=== PATIENT | female | born 1955 | race Caucasian/White ===

== ENCOUNTER 2017-07-12 12:04 | Day surgery (SDC) | payer OTHER ==
[2017-07-12 12:28] VITALS: RESP 20; TEMP 95.5
[2017-07-12] MEDS ORDERED: ALPRAZolam 0.5 MG TAB PO STA (12:36)
[2017-07-12 13:17] VITALS: BP 150/76; PULSE 61
--- NOTE | 2017-07-12 14:01 | US ---
EXAMINATION TYPE: US FNA thyroid DATE OF EXAM: 07/12/2017 COMPARISON: NONE HISTORY: Thyroid nodule. Maximal barrier technique was utilized. After informed consent, skin overlying the lesion was locali zed with ultrasound and the overlying skin prepped and draped. Ultrasound was utilized using sterile technique. Lidocaine was used for local anesthesia. Five passes with a 25-gauge needle were made int o the rightnodule and aspirated specimen was submitted to cytology. Following the procedure hemostas is achieved. No immediate complication. The patient discharged in stable condition. IMPRESSION: STATUS POST ULTRASOUND GUIDED FINE NEEDLE ASPIRATION OF THYROID NODULE, PATHOLOGY IS PEND ING. THIS PROCEDURE WAS PERFORMED BY THE UNDERSIGNED.
--- NOTE | 2017-07-12 14:03 | US ---
EXAMINATION TYPE: US FNA thyroid DATE OF EXAM: 07/12/2017 COMPARISON: NONE HISTORY: Thyroid nodule.Maximal barrier technique was utilized. After informed consent, skin overlyi ng the lesion was localized with ultrasound and the overlying skin prepped and draped. Ultrasound was utilized using sterile technique. Lidocaine was used for local anesthesia. Single pass with a 25-gau ge needle were made into the nodule, the needle could not be advanced past the calcification, and asp irated specimen was submitted to cytology. Following the procedure hemostasis achieved. No immediat e complication. The patient discharged in stable condition. IMPRESSION: STATUS POST ULTRASOUND GUIDED FINE NEEDLE ASPIRATION OF LEFT THYROID NODULE as described, PATHOLOGY IS PENDING. THIS PROCEDURE WAS PERFORMED BY THE UNDERSIGNED.
== END 2017-07-12 13:50 | disposition home or self-care (01) ==
LOC: RADPROMAIN 12:04
PROVIDERS: ATTEND Family Medicine
DX: E04.2 Nontoxic multinodular goiter (principal); Z79.899 Other long term (current) drug therapy; E78.5 Hyperlipidemia, unspecified; F32.9 Major depressive disorder, single episode, unspecified; M19.90 Unspecified osteoarthritis, unspecified site; Z87.891 Personal history of nicotine dependence
CPT/HCPCS: 10022; 76942; 88173; 88305

== ENCOUNTER → 2017-07-17 | Outpatient (CLI) | payer OTHER ==
--- NOTE | 2017-07-18 09:18 | BD ---
EXAMINATION TYPE: MG DEXA axial skeleton. DATE OF EXAM: 07/17/2017 COMPARISON: NONE CLINICAL HISTORY: Postmenopausal female Height: 61 Weight: 177.5 FRAX RISK QUESTIONS: Alcohol (3 or more units per day): no Family History (Parent hip fracture): no Glucocorticoids (More than 3mos): no (Ex: prednisone, prednisolone, methylprednisolone, dexamethasone, and hydrocortisone). History of Fracture in Adulthood: no Secondary Osteoporosis: 1. Type 1 Diabetes: no 2. Hyperthyroidism: no 3. Menopause before 45: no 4. Malnutrition: no 5. Chronic liver disease: no Rheumatoid Arthritis: no Current Tobacco Use: no RISK FACTORS HISTORY OF: History of Wrist Fracture: rt arm When: as a child Surgery to Spine/Hip(right/left)/Wrist (right/left): no Family History of Osteoporosis: no Active: yes Diet low in dairy products/other sources of calcium: no Postmenopausal woman: sometime after age 43 Lost more than 2 inches in height since high school: no Frequent falls: no Poor Health: no Hyperparathyroidism: no Adrenal Insufficiency: no MEDICATIONS: trazodone, depression meds, sleep aid, claratin, muscle relaxer Additional History: EXAM MEASUREMENTS: Bone mineral densitometry was performed using the [employer] System. Bone mineral density as measured about the Lumbar spine is: ----- L1-L4(G/cm2): 0.834 T Score Values are as follows: ----- L2: -3.6 ----- L3: -2.9 ----- L4: -1.9 ----- L1-L4: -2.9 Bone mineral density baseline Bone mineral density about the R hip (g/cm2): 0.677 Bone mineral density about the L hip (g/cm2): 0.619 T Score values are as follows: -----R Neck: -2.6 -----L Neck: -3.0 -----R Total: -1.9 -----L Total: -2.1 Bone mineral density baseline IMPRESSION: 1. Osteoporosis lumbar spine 2. Osteopenia of the left hip and right hip. NOTE: T-SCORE=SD OF THE YOUNG ADULT MEAN.
== END | disposition home or self-care (01) ==
LOC: RADBDWWP 15:48
PROVIDERS: ATTEND Family Medicine
DX: M81.0 Age-related osteoporosis without current pathological fracture (principal); M85.851 Other specified disorders of bone density and structure, right thigh; M85.852 Other specified disorders of bone density and structure, left thigh; F17.200 Nicotine dependence, unspecified, uncomplicated
CPT/HCPCS: 77080

== ENCOUNTER 2017-08-08 10:57 | Day surgery (SDC) | payer OTHER ==
[~2017-08-08 10:57] MED LIST: LACTATED RINGERS 1,000 ML IV SCH
[2017-08-08] MEDS ORDERED: LIDOCAINE 1% 20 ML VIAL (10MG/ML) FOR IV START INTRADERMA ONE (11:45)
[2017-08-08 12:00] VITALS: TEMP 97.3
[2017-08-08] MEDS ORDERED: PROPOFOL 10 MG/ML 20 ML VIAL IV ONE (12:12)
[2017-08-08] MEDS ORDERED: LIDOCAINE 1% INJ 10MG/ML (20 ML MDV) ONE (12:12)
[2017-08-08 12:40] VITALS: RESP 18
--- NOTE | 2017-08-08 12:42 | P.OP ---
Date of Procedure: 08/08/17 Preoperative Diagnosis: Screening. For colon cancer Postoperative Diagnosis: Descending colon polyp Moderate to extensive diverticulosis. Procedure(s) Performed: Colonoscopy and snare polypectomy Anesthesia: MAC Surgeon: Chato Trinh Estimated Blood Loss (ml): 0 Pathology: other (Descending colon polyp) Condition: stable Indications for Procedure: The patient is a 61-year-old white female comes in for us A slime screening colonoscopy. Asymptomatic. Informed consent was obtained procedure having been explained to her including potential complication particular bleeding and perforation. She understood and agree to proceed. Operative Findings: 1 descending colon polyp at about 55 cm from the anal verge sessile about the 4 mm in diameter. 2 moderately extensive pandiverticulosis. Description of Procedure: With the patient in the left lateral position rectal digital examination was normal there were no palpable masses. The video colonoscope was inserted transanally and advanced all the way to the cecum which was entered and well visualized. The ileocecal valve and the appendiceal orifice were well seen. Prep was good. The mucosa were thoroughly examined. Findings as above. The polyp was removed with the snare cautery with good hemostasis. 2 passes of the snare it being quite the flat. The patient tolerated procedure well without any evident complications. Recommendation. High-fiber diet. Advised to chew food well. Recommend a follow-up colonoscopy in about the 3 years in view of the flat nature of the polyp and increased incidence of recurrence.
[2017-08-08 12:58] VITALS: BP 142/72; PULSE 66
== END 2017-08-08 13:14 | disposition home or self-care (01) ==
LOC: ORWHC2ENDO 10:57
PROVIDERS: ATTEND Surgery
DX: Z12.11 Encounter for screening for malignant neoplasm of colon (principal); D12.4 Benign neoplasm of descending colon; K57.30 Diverticulosis of large intestine without perforation or abscess without bleeding; M19.90 Unspecified osteoarthritis, unspecified site; F32.9 Major depressive disorder, single episode, unspecified; E03.9 Hypothyroidism, unspecified; E04.9 Nontoxic goiter, unspecified; E78.00 Pure hypercholesterolemia, unspecified; Z79.899 Other long term (current) drug therapy; Z87.891 Personal history of nicotine dependence; Z79.1 Long term (current) use of non-steroidal anti-inflammatories (NSAID)
CPT/HCPCS: 88305; 45385; J2001; J2704

== ENCOUNTER → 2018-05-16 | Outpatient (CLI) | payer OTHER ==
--- NOTE | 2018-05-16 14:31 | US ---
EXAMINATION TYPE: US abdomen complete DATE OF EXAM: 05/16/2018 COMPARISON: NONE CLINICAL HISTORY: 52-year-old female R14.0 Abd distension, Abd pain R10.30. Distended abdomen x multi ple years, occasional abdomen pain TECHNIQUE: Multiple sonographic images of the abdomen are obtained. FINDINGS: EXAM MEASUREMENTS: Liver Length: 12.9 cm Gallbladder Wall: 0.2 cm CBD: 0.4 cm Spleen: 8.0 cm Right Kidney: 9.3 x 5.6 x 4.6 cm Left Kidney: 9.4 x 4.7 x 4.4 cm Nutrition Partner notes:Suboptimal visualization of abdominal organs due to midline abdomen mass displaci ng organs superiorly. Pancreas: obscured Liver: wnl Gallbladder: wnl Evidence for sonographic Jarrett's sign: no CBD: wnl Spleen: wnl Right Kidney: wnl Left Kidney: wnl Upper IVC: wnl Abd Aorta: obscured Distended abdomen area: 31.8 x 21.3 x 27.7cm complex septated cystic mass IMPRESSION: 1. Abdominal distention is secondary to a complex cystic mass measuring up to 32 x 28 cm reaching up to the upper abdominal cavity. 2. This may be of ovarian origin representing a very large cystic epithelial neoplasm. Other etiology not excluded at this time. Contrast enhanced CT recommended to further evaluate.
== END | disposition home or self-care (01) ==
LOC: RADUSWWP 08:47
PROVIDERS: ATTEND Family Medicine
DX: R14.0 Abdominal distension (gaseous) (principal)
CPT/HCPCS: 76700

== ENCOUNTER → 2018-05-31 | Outpatient (CLI) | payer OTHER ==
--- NOTE | 2018-05-31 14:56 | CT ---
EXAMINATION TYPE: CT abdomen pelvis w con DATE OF EXAM: 05/31/2018 HISTORY: Abdominal bloating. CT DLP: 1146.1mGycm Automated Exposure Control for Dose Reduction was Utilized. CONTRAST: CT scan of the abdomen and pelvis is performed with IV Contrast, patient injected with 100 mL of Isov ue M300. COMPARISON: Abdominal ultrasound dated 05/16/2018 FINDINGS: LUNG BASES: No significant abnormality is appreciated. LIVER/GB: There is a punctate to small to accurately characterize 4 mm hepatic lesion in segment 8 on series 3 image 7. Additional 3 mm too small to accurately characterize hepatic lesion is seen on ser ies 3 image 21lastly there is a 4 mm hypoattenuated lesion on image 6. The remainder of the hepatic p arenchyma enhances homogeneously. No cholelithiasis. PANCREAS: No significant abnormality is seen. SPLEEN: No significant abnormality is seen. ADRENALS: No significant abnormality is seen. KIDNEYS: Kidneys enhance and excrete symmetrically. Mild fullness of the bilateral renal systems may be on the basis of mild hydronephrosis due to compression of the ureters by the large intra-abdominal mass. BOWEL: There is a small hiatal hernia. Bowel is compressed by the large intra-abdominal mass causing significant mass effect. No dilated bowel to suggest obstruction. UTERUS/ADNEXA: There is a large multicystic lobulated pelvic mass extending into the upper abdomen wi th mass effect upon the surrounding intra-abdominal hollow and solid viscera crossing midline and salvatore suring 32.8 x 16.4 x 25.0 cm containing numerous internal septa. LYMPH NODES: No gross evidence of greater than 1cm abdominal or pelvic lymph nodes are appreciated. H owever mesentery is extremely limited given mass effect from the large mass. OSSEOUS STRUCTURES: Levoscoliosis of the lumbar spine is noted. IMPRESSION: 1. Large complex 32.8 cm pelvic mass extending into the upper abdomen with mass effect upon the intra -abdominal and pelvic hollow and solid viscera accounting for the patient's symptoms. Considerations are for benign and malignant ovarian neoplasms such as mucinous and serous cystoadenoma and cystadeno carcinoma. Surgical OB/gynecologic consultation is recommended. Surgical excision is also recommended . 2. Fullness of the bilateral collecting systems suggests mild hydronephrosis due to mass effect on th e distal ureters from the large intra-abdominal mass. 3. Indeterminate hepatic lesions that are all subcentimeter and too small to accurately characterize. MRI could be considered or short-term surveillance.
== END ==
LOC: RADCTMAIN 12:34
PROVIDERS: ATTEND Family Medicine
DX: R19.00 Intra-abdominal and pelvic swelling, mass and lump, unspecified site (principal)
CPT/HCPCS: 74177; Q9967

== ENCOUNTER → 2018-06-28 | Outpatient (CLI) | payer OTHER ==
--- NOTE | 2018-06-29 10:28 | EST ---
EXERCISE STRESS AGE: 62 SEX: F HT: 61" WT: 180 PROTOCOL: William Stress Test STAGE: 2 DURATION OF EXERCISE: 3:36 HEART RATE REST: 80 BLOOD PRESSURE REST: 144/96 MAXIMUM HEART RATE ACHIEVED: 139 MAXIMUM BLOOD PRESSURE: 211/85 85% MPHR: 133 100% MPHR: 156 METS: 5.2 INDICATIONS: Murmur/preoperative. CLINICAL INFORMATION: Patient was exercised for a total period of 3 minutes and 30 seconds. A peak heart rate of 139 was achieved. Maximum blood pressure of 211/85 mmHg was noted. Patient did not complain of any chest pain during the test. The resting EKG shows normal sinus rhythm with normal AL interval and QRS duration and normal ST-T waves. No ST-segment depression suggestive of ischemia is noted. Patient did not complain of any chest pain during the test. FINAL IMPRESSION: 1. This exercise test is not suggestive of ischemia. Patient's exercise tolerance is normal. 2. EKG portion of the stress test is not suggestive of ischemia. MMODL / IJN: [id number] /
== END | disposition home or self-care (01) ==
LOC: RADNMMAIN 10:40
PROVIDERS: ATTEND Family Medicine
DX: Z01.810 Encounter for preprocedural cardiovascular examination (principal)
CPT/HCPCS: 93017; 93351

== ENCOUNTER 2018-11-29 13:31 | Observation (INO) | payer OTHER ==
[2018-11-29] MEDS ORDERED: ASPIRIN 81 MG PO STA (14:17)
--- NOTE | 2018-11-29 14:18 | ED ---
General Adult HPI - General Chief complaint: Anxiety Stated complaint: Anxiety, Chest pain Time Seen by Provider: 11/29/18 13:37 Source: patient, EMS Mode of arrival: EMS Limitations: no limitations - History of Present Illness Initial comments: Dictation was produced using [employer] dictation software. please excuse any grammatical, word or spelling errors. Chief Complaint: 62-year-old female past medical history of heart murmur, dyslipidemia and undefined abdominal cancer presents with chest pain. History of Present Illness: Patient is 62-year-old female she states that she was having chest pain while arguing with her fianc. Patient states that the pain is between sharp and dull and radiates down her left upper extremity. Patient states that she called ambulance and was brought to the emergency department. Patient reports that she does not feel safe at home however arrange safe living situation. Patient reports that there are arguing about a myriad of things. States that her symptoms lasted for several minutes however since coming to the emergency department her symptoms are improved. Patient reports history of cardiac disease she states that her cardiac diseases heart murmur. Chart review shows patient had a EKG stress tests with no ischemic findings. No diaphoresis, no nausea. The ROS documented in this emergency department record has been reviewed and confirmed by me. Those systems with pertinent positive or negative responses have been documented in the HPI. All other systems are other negative and/or noncontributory. PHYSICAL EXAM: General Impression: Alert and oriented x3, not in acute distress HEENT: Normocephalic atraumatic, extra-ocular movements intact, pupils equal and reactive to light bilaterally, mucous membranes moist. Cardiovascular: Heart regular rate and rhythm, S1&S2 audible, no murmurs, rubs or gallops Chest: Lungs clear to auscultation bilaterally, no rhonchi, no wheeze, no rales Abdomen: Bowel sounds present, abdomen soft, non-tender, non-distended, no o rganomegaly Musculoskeletal: Pulses present and equal in all extremities, no peripheral edema Motor: no focal deficits noted Neurological: CN II-XII grossly intact, no focal motor or sensory deficits noted Skin: Intact with no visualized rashes Psych: Normal affect and mood ED course: 62-year-old female presents with atypical chest pain with typical features. Vital signs upon arrival are within acceptable limits.Laboratory evaluation obtained. CBC, coag panel and metabolic panel is unremarkable. Troponin is negative. Chest x-ray shows superior mediastinal mass. Radiology recommended obtaining CT of the chest. 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 Patient has history of thyroid disease. She has a surgeon in [place] who is monitoring her goiter. Chart review shows that patient had findings of aspiration here showing benign multinodular goiter. Given patient's symptoms of atypical chest pain with typical features we will plan outpatient admitted for surgery troponins. Patient had stress EKG in June that was unremarkable. Patient given aspirin. She is understandable and agreeable to disposition. EKG interpretation: Ventricular rate 66, normal sinus rhythm, IN interval 170, QRS 80, QTc 42. No IN prolongation, no QTC prolongation, no ST or T-wave changes noted. Overall, this EKG is unremarkable - Related Data Home Medications Medication Instructions Recorded Confirmed Atorvastatin [Lipitor] 10 mg PO HS 06/29/17 11/29/18 Citalopram Hydrobromide [CeleXA] 10 mg PO QAM 06/29/17 11/29/18 Cyclobenzaprine [Flexeril] 10 mg PO BID 06/29/17 11/29/18 Loratadine [Claritin] 10 mg PO HS 06/29/17 11/29/18 traZODone HCL 50 mg PO HS 06/29/17 11/29/18 Naproxen Sodium [Aleve] 220 - 440 mg PO Q6HR PRN 08/04/17 11/29/18 Ergocalciferol (Vitamin D2) 50,000 unit PO Q7D 11/29/18 11/29/18 [Drisdol] Allergies Allergy/AdvReac Type Severity Reaction Status Date / Time venom-wasp AdvReac Rash/Hives Verified 11/29/18 13:55 Review of Systems ROS Statement: Those systems with pertinent positive or pertinent negative responses have been documented in the HPI. ROS Other: All systems not noted in ROS Statement are negative. Past Medical History Past Medical History: Hyperlipidemia, Osteoarthritis (OA), Thyroid Disorder Additional Past Medical History / Comment(s): vitamin D deficiency, goiter, knee arthritis, ovarian cyst History of Any Multi-Drug Resistant Organisms: None Reported Past Surgical History: Hysterectomy Additional Past Surgical History / Comment(s): oopherectomy - right Past Anesthesia/Blood Transfusion Reactions: No Reported Reaction Past Psychological History: Depression Smoking Status: Former smoker Past Alcohol Use History: None Reported Past Drug Use History: None Reported - Past Family History Father Family Medical History: Cancer Additional Family Medical History / Comment(s): cancer of the larynx Mother Family Medical History: Dementia General Exam Limitations: no limitations Course Vital Signs 11/29/18 11/29/18 11/29/18 13:41 15:00 15:30 Temperature 97.5 F L Pulse Rate 75 Respiratory 18 Rate Blood Pressure 151/75 159/70 148/72 O2 Sat by Pulse 98 97 100 Oximetry 11/29/18 16:00 Temperature Pulse Rate Respiratory Rate Blood Pressure 143/69 O2 Sat by Pulse 95 Oximetry Medical Decision Making - Lab Data Result diagrams: 11/29/18 14:31 11/29/18 14:31 Lab Results 11/29/18 11/29/18 11/29/18 Range/Units 14:31 14:31 14:31 WBC 8.1 (3.8-10.6) k/uL RBC 4.91 (3.80-5.40) m/uL Hgb 13.0 (11.4-16.0) gm/dL Hct 41.0 (34.0-46.0) % MCV 83.6 (80.0-100.0) fL MCH 26.5 (25.0-35.0) pg MCHC 31.8 (31.0-37.0) g/dL RDW 13.4 (11.5-15.5) % Plt Count 225 (150-450) k/uL Neutrophils % 74 % Lymphocytes % 19 % Monocytes % 6 % Eosinophils % 1 % Basophils % 0 % Neutrophils # 5.9 (1.3-7.7) k/uL Lymphocytes # 1.5 (1.0-4.8) k/uL Monocytes # 0.5 (0-1.0) k/uL Eosinophils # 0.1 (0-0.7) k/uL Basophils # 0.0 (0-0.2) k/uL PT 10.1 (9.0-12.0) sec INR 0.9 (<1.2) APTT 25.3 (22.0-30.0) sec Sodium 140 (137-145) mmol/L Potassium 4.2 (3.5-5.1) mmol/L Chloride 108 H (98-107) mmol/L Carbon Dioxide 26 (22-30) mmol/L Anion Gap 6 mmol/L BUN 15 (7-17) mg/dL Creatinine 0.53 (0.52-1.04) mg/dL Est GFR (CKD-EPI)AfAm >90 (>60 ml/min/1.73 sqM) Est GFR (CKD-EPI)NonAf >90 (>60 ml/min/1.73 sqM) Glucose 99 (74-99) mg/dL Calcium 9.7 (8.4-10.2) mg/dL Magnesium 2.0 (1.6-2.3) mg/dL Total Bilirubin 0.4 (0.2-1.3) mg/dL AST 23 (14-36) U/L ALT 25 (9-52) U/L Alkaline Phosphatase 98 (38-126) U/L Troponin I (0.000-0.034) ng/mL Total Protein 6.9 (6.3-8.2) g/dL Albumin 4.2 (3.5-5.0) g/dL /12/12 Range/Units 14:31 WBC (3.8-10.6) k/uL RBC (3.80-5.40) m/uL Hgb (11.4-16.0) gm/dL Hct (34.0-46.0) % MCV (80.0-100.0) fL MCH (25.0-35.0) pg MCHC (31.0-37.0) g/dL RDW (11.5-15.5) % Plt Count (150-450) k/uL Neutrophils % % Lymphocytes % % Monocytes % % Eosinophils % % Basophils % % Neutrophils # (1.3-7.7) k/uL Lymphocytes # (1.0-4.8) k/uL Monocytes # (0-1.0) k/uL Eosinophils # (0-0.7) k/uL Basophils # (0-0.2) k/uL PT (9.0-12.0) sec INR (<1.2) APTT (22.0-30.0) sec Sodium (137-145) mmol/L Potassium (3.5-5.1) mmol/L Chloride (98-107) mmol/L Carbon Dioxide (22-30) mmol/L Anion Gap mmol/L BUN (7-17) mg/dL Creatinine (0.52-1.04) mg/dL Est GFR (CKD-EPI)AfAm (>60 ml/min/1.73 sqM) Est GFR (CKD-EPI)NonAf (>60 ml/min/1.73 sqM) Glucose (74-99) mg/dL Calcium (8.4-10.2) mg/dL Magnesium (1.6-2.3) mg/dL Total Bilirubin (0.2-1.3) mg/dL AST (14-36) U/L ALT (9-52) U/L Alkaline Phosphatase (38-126) U/L Troponin I <0.012 (0.000-0.034) ng/mL Total Protein (6.3-8.2) g/dL Albumin (3.5-5.0) g/dL Disposition Clinical Impression: Chest pain Disposition: ADMITTED IP TO THIS HOSP Condition: Fair Referrals: Kg Peterson DO [Primary Care Provider] - 1-2 days Decision Time: 17:06
[2018-11-29 14:44] LABS: Basophils % (A) 0 %; Eosinophils # (A) 0.1 k/uL (0-0.7); Eosinophils % (A) 1 %; Lymphocytes # (A) 1.5 k/uL (1.0-4.8); Lymphocytes % (A) 19 %; MCH 26.5 pg (25.0-35.0); MCHC 31.8 g/dL (31.0-37.0); MCV 83.6 fL (80.0-100.0); Mean Platelet Volume 6.4; Monocytes # (A) 0.5 k/uL (0-1.0); Monocytes % (A) 6 %; Neutrophils # (A) 5.9 k/uL (1.3-7.7); Neutrophils % (A) 74 %; Platelet Count 225 k/uL (150-450); RBC 4.91 m/uL (3.80-5.40); RDW 13.4 % (11.5-15.5); WBC 8.1 k/uL (3.8-10.6)
--- NOTE | 2018-11-29 14:57 | XR ---
EXAMINATION TYPE: XR chest 2V DATE OF EXAM: 11/29/2018 COMPARISON: NONE HISTORY: Chest pain and tachycardia TECHNIQUE: Frontal and lateral views of the chest are obtained. FINDINGS: Superior mediastinal mass is seen measuring 9.7 cm. There is no focal air space opacity, p leural effusion, or pneumothorax seen. The cardiac silhouette size is within normal limits. The os seous structures are intact. IMPRESSION: 1. Superior mediastinal mass. CT chest could be performed for further evaluation. If this mass is thy roid in origin in combination with the the tachycardia thyroiditis and/or thyroid storm could be cons idered. 2. No acute pulmonary pathology.
[2018-11-29 15:00] LABS: ALT 25 U/L (9-52); AST 23 U/L (14-36); African American GFR (CKD) >90 (>60 ml/min/1.73 sqM); Albumin 4.2 g/dL (3.5-5.0); Alkaline Phosphatase 98 U/L (38-126); Anion Gap 6 mmol/L; Blood Urea Nitrogen 15 mg/dL (7-17); Calcium 9.7 mg/dL (8.4-10.2); Carbon Dioxide 26 mmol/L (22-30); Chloride 108 mmol/L (98-107); Glucose 99 mg/dL (74-99); Potassium 4.2 mmol/L (3.5-5.1); Sodium 140 mmol/L (137-145); Total Bilirubin 0.4 mg/dL (0.2-1.3); Total Protein 6.9 g/dL (6.3-8.2)
[2018-11-29 15:01] LABS: INR 0.9 (<1.2); Partial Thromboplastin Time 25.3 sec (22.0-30.0); Prothrombin Time 10.1 sec (9.0-12.0)
[2018-11-29] MEDS ORDERED: RX INFO: IV CONTRAST WAS GIVEN 1 EACH MISC MISCELLANE PRN (15:39)
--- NOTE | 2018-11-29 16:56 | CT ---
EXAMINATION TYPE: CT chest w con DATE OF EXAM: 11/29/2018 COMPARISON: None HISTORY: History of heart murmur. Anxiety attack today, left sided chest pain. CT DLP: 229.3 mGycm Automated exposure control for dose reduction was used. CONTRAST: CT scan of the chest is performed with IV Contrast, patient injected with 100 mL of Isovue 300. FINDINGS: The lungs are clear of infiltrate. There is no pleural effusion. There is markedly enlarged thyroid g land with nodularity consistent with multinodular retrosternal goiter. There is no mediastinal adenop athy. There are no hilar masses. Heart size is normal. There is no pericardial effusion. There is no pleural effusion. There is some spurring in the thoracic spine. I see no bony destructive process. There is small hiata l hernia. The ribs appear intact. IMPRESSION: Large multinodular retrosternal goiter. Otherwise negative CT scan of the chest.
[2018-11-29] MEDS ORDERED: NITROGLYCERIN SL TABS 0.4 MG TAB SUBLINGUAL PRN (17:06)
[2018-11-29 18:06] LABS: T4, Free (Free Thyroxine) 1.25 ng/dL (0.78-2.19)
[2018-11-29 22:10] VITALS: BMI 31.0
[2018-11-29] MEDS: ATORVASTATIN 10 MG TAB PO SCH ×2 (22:36→23:18)
[2018-11-29] MEDS ORDERED: traZODone HCL 50 MG TAB PO SCH (23:15)
[2018-11-29] MEDS ORDERED: LORATADINE 10 MG TAB PO SCH (23:15)
[2018-11-29] MEDS: CYCLOBENZAPRINE 10 MG TAB PO SCH (23:18)
[2018-11-30] MEDS ORDERED: NAPROXEN 250 MG TAB PO PRN (01:53)
[2018-11-30 03:24] LABS: Cholesterol 145 mg/dL (<200); HDL Cholesterol 67 mg/dL (40-60); LDL Cholesterol,Calculated 67 mg/dL (0-99); Triglycerides 56 mg/dL (<150)
--- NOTE | 2018-11-30 07:44 | P.CRDCN ---
History of Present Illness Consult date: 11/30/18 Chief complaint: Chest pain History of present illness: This is a pleasant 62-year-old female patient with no significant past medical history presented to the emergency room complaining of chest discomfort. The patient was in her usual state of health yesterday when she had a fight with her boyfriend at home and after that she started experiencing chest discomfort, in the mid of the chest, as a sharp kind of discomfort, without any radiation to the arm or neck or shoulders and without any associated symptoms of shortness of breath, dizziness, sweating, or loss of consciousness. The EKG showed sinus rhythm without any significant ST or T-wave abnormalities. The cardiac enzymes were checked and came in to be unremarkable. The patient just was discharged from the hospital a few weeks ago after she came in was chest discomfort and at that point she underwent a stress test and that came in to be unremarkable. She continues to be chest pain-free during her hospitalization this time. Past Medical History Past Medical History: Hyperlipidemia, Osteoarthritis (OA), Thyroid Disorder Additional Past Medical History / Comment(s): vitamin D deficiency, goiter, knee arthritis, ovarian cyst History of Any Multi-Drug Resistant Organisms: None Reported Past Surgical History: Hysterectomy Additional Past Surgical History / Comment(s): oopherectomy - right Past Anesthesia/Blood Transfusion Reactions: No Reported Reaction Past Psychological History: Depression Smoking Status: Former smoker Past Alcohol Use History: None Reported Additional Past Alcohol Use History / Comment(s): Quit 2010 Past Drug Use History: None Reported - Past Family History Father Family Medical History: Cancer Additional Family Medical History / Comment(s): cancer of the larynx Mother Family Medical History: Dementia Medications and Allergies Home Medications Medication Instructions Recorded Confirmed Type Atorvastatin [Lipitor] 10 mg PO HS 06/29/17 11/29/18 History Citalopram Hydrobromide [CeleXA] 10 mg PO QAM 06/29/17 11/29/18 History Cyclobenzaprine [Flexeril] 10 mg PO BID 06/29/17 11/29/18 History Loratadine [Claritin] 10 mg PO HS 06/29/17 11/29/18 History traZODone HCL 50 mg PO HS 06/29/17 11/29/18 History Naproxen Sodium [Aleve] 220 - 440 mg PO Q6HR PRN 08/04/17 11/29/18 History Ergocalciferol (Vitamin D2) 50,000 unit PO Q7D 11/29/18 11/29/18 History [Drisdol] Allergies Allergy/AdvReac Type Severity Reaction Status Date / Time venom-wasp AdvReac Rash/Hives Verified 11/29/18 13:55 Physical Exam Vitals: Vital Signs Temp Pulse Pulse Resp BP BP Pulse Ox 11/30/18 07:08 97.8 F 76 17 134/80 98 11/30/18 04:00 76 20 11/30/18 03:56 98.2 F 71 20 121/65 100 11/30/18 00:00 79 16 11/29/18 23:37 97.8 F 77 16 152/71 96 11/29/18 20:00 69 18 11/29/18 19:54 98.0 F 73 18 149/70 100 11/29/18 19:34 98.4 F 75 19 147/62 100 11/29/18 19:00 80 18 140/81 99 11/29/18 18:30 80 24 140/81 97 11/29/18 18:00 84 31 H 140/81 98 11/29/18 17:30 80 17 152/75 100 11/29/18 17:00 80 21 156/68 99 11/29/18 16:30 156/68 11/29/18 16:00 143/69 95 11/29/18 15:30 148/72 100 11/29/18 15:00 159/70 97 11/29/18 13:41 97.5 F L 75 18 151/75 98 Intake and Output 11/29/18 11/30/18 11/30/18 22:59 06:59 14:59 Other: Voiding Method Toilet Toilet # Voids 1 1 - Constitutional General appearance: no acute distress - Respiratory Respiratory: bilateral: CTA - Cardiovascular Rhythm: regular Heart sounds: normal: S1, S2 Results 11/29/18 14:31 11/29/18 14:31 Cardiac Enzymes 11/29/18 11/29/18 11/29/18 Range/Units 14:31 14:31 20:05 AST 23 (14-36) U/L Troponin I <0.012 <0.012 (0.000-0.034) ng/mL 11/30/18 Range/Units 02:40 AST (14-36) U/L Troponin I <0.012 (0.000-0.034) ng/mL Coagulation 11/29/18 Range/Units 14:31 PT 10.1 (9.0-12.0) sec APTT 25.3 (22.0-30.0) sec Lipids 11/30/18 Range/Units 02:40 Triglycerides 56 (<150) mg/dL Cholesterol 145 (<200) mg/dL HDL Cholesterol 67 H (40-60) mg/dL CBC 11/29/18 Range/Units 14:31 WBC 8.1 (3.8-10.6) k/uL RBC 4.91 (3.80-5.40) m/uL Hgb 13.0 (11.4-16.0) gm/dL Hct 41.0 (34.0-46.0) % Plt Count 225 (150-450) k/uL Comprehensive Metabolic Panel 11/29/18 Range/Units 14:31 Sodium 140 (137-145) mmol/L Potassium 4.2 (3.5-5.1) mmol/L Chloride 108 H (98-107) mmol/L Carbon Dioxide 26 (22-30) mmol/L BUN 15 (7-17) mg/dL Creatinine 0.53 (0.52-1.04) mg/dL Glucose 99 (74-99) mg/dL Calcium 9.7 (8.4-10.2) mg/dL AST 23 (14-36) U/L ALT 25 (9-52) U/L Alkaline Phosphatase 98 (38-126) U/L Total Protein 6.9 (6.3-8.2) g/dL Albumin 4.2 (3.5-5.0) g/dL Current Medications Generic Name Dose Route Start Last Admin Trade Name Freq PRN Reason Stop Dose Admin Aspirin 325 mg 11/30/18 09:00 Aspirin PO DAILY [facility] Atorvastatin Calcium 10 mg 11/29/18 21:00 11/29/18 23:18 Lipitor PO 10 mg HS MADELEINE Administration Citalopram Hydrobromide 10 mg 11/30/18 09:00 Celexa PO QAM MADELEINE Cyclobenzaprine HCl 10 mg 11/29/18 23:15 11/29/18 23:18 Flexeril PO 10 mg BID MADELEINE Administration Ergocalciferol 50,000 unit 12/05/18 09:00 Vitamin D2 PO Q7D MADELEINE Loratadine 10 mg 11/29/18 23:15 11/29/18 23:18 Claritin PO 10 mg HS MADELEINE Administration Miscellaneous Information 1 each 11/29/18 15:39 11/29/18 16:04 Rx Info: Iv Contrast Was Given MISCELLANE 12/01/18 15:39 1 each DAILY PRN Administration Per Protocol Naproxen 250 mg 11/30/18 01:53 Naprosyn PO Q6HR PRN Pain Nitroglycerin 0.4 mg 11/29/18 17:06 Nitrostat SUBLINGUAL Q5M PRN Chest Pain Trazodone HCl 50 mg 11/29/18 23:15 11/29/18 23:19 Desyrel PO 50 mg HS MADELEINE Administration Intake and Output 11/29/18 11/30/18 11/30/18 22:59 06:59 14:59 Other: Voiding Method Toilet Toilet # Voids 1 1 11/29/18 14:31 11/29/18 14:31 Assessment and Plan Assessment: Assessment #1 atypical chest discomfort Plan #1 acute coronary event was ruled out #2 the patient just underwent a stress test recently and that came in to be unremarkable #3 from the cardiac standpoint, the patient can be discharged home. Thank you for allowing us participate in her care.
--- NOTE | 2018-11-30 08:05 | HP ---
HISTORY AND PHYSICAL DATE OF SERVICE: 11/29/2018 CHIEF COMPLAINT: Chest pain. HISTORY OF PRESENT ILLNESS: This 62-year-old woman with a past medical history of multiple medical problems including history of hyperlipidemia, history of DJD, history of hypothyroidism, vitamin D deficiency, depression, being followed by Dr. Coleen Lopez in the outpatient setting was complaining of chest pain. The patient apparently was arguing with her significant other and the patient developed chest pain. Patient came to [facility] and admitted for further evaluation and treatment. Patient apparently had a stress test in June of this year in [facility] which was reported as showing no evidence of ischemia. There is no history of any fever, rigors. No history of headache, loss of consciousness or seizures. No history of radiation of pain or any associated symptoms. The pain is rather sharp in character, mild to moderate intensity according to her. The basic labs are normal. EKG is also normal and as well as troponins. PAST MEDICAL HISTORY: History of hyperlipidemia, history of DJD, history of hypothyroidism, vitamin D deficiency, hysterectomy, oophorectomy right. MEDICATIONS: Home medications are: 1. Trazodone 50 mg q.h.s. 2. Naprosyn 220 to 440 mg p.o. q.6 p.r.n. 3. Claritin 10 mg q.h.s. 4. Drisdol 50,000 p.o. q.7 days. 5. Flexeril 10 mg p.o. b.i.d. 6. Celexa 10 mg q.a.m. 7. Lipitor 10 mg q.h.s. ALLERGIES: Allergies are WASP VENOM. FAMILY HISTORY: History of laryngeal cancer. SOCIAL HISTORY: Previous history of smoking. No history of alcohol intake. REVIEW OF SYSTEMS: ENT: No diminished hearing or diminished vision. CARDIOVASCULAR SYSTEM: As mentioned earlier. RESPIRATORY SYSTEM: As mentioned earlier. GI: No nausea. : No dysuria. NERVOUS SYSTEM: No numbness or weakness. ALLERGY/IMMUNOLOGY: No asthma or hay fever. MUSCULOSKELETAL: As mentioned earlier. HEMATOLOGY/ONCOLOGY: No history of anemia. ENDOCRINE: No history of diabetes, hypothyroidism. CONSTITUTIONAL: As mentioned earlier. DERMATOLOGY: Negative. RHEUMATOLOGY: Negative. PSYCHIATRY: As mentioned earlier. PHYSICAL EXAMINATION: The patient is alert and oriented x3. Pulse is 77, blood pressure 152/71, respirations 16, temperature 97.8, pulse ox 96% on room air. HEENT: Conjunctivae normal. Oral mucosa moist. NECK: Is no jugular venous distention, no carotid bruit. No lymph node enlargement. CARDIOVASCULAR: S1, S2 muffled. No S3, no S4. RESPIRATORY: Breath sounds diminished in the bases. A few scattered rhonchi. No crackles. ABDOMEN: Soft, nontender. No mass palpable. LEGS: No edema, no swelling. NERVOUS SYSTEM: Higher functions as mentioned. Moves all 4 limbs. No focal motor or sensory deficit. LYMPHATICS: No lymphadenopathy of the neck, axillae or groin. SKIN: No ulcer, rash or bleeding. JOINTS: No active deforming arthropathy. LABS: WBC 8.1, hemoglobin 13, platelets are 225. Sodium 140, potassium 4.2. TSH less than 0.015. ASSESSMENT: 1. Chest pain possible unstable angina. 2. Anxiety state. 3. Hyperlipidemia. 4. Degenerative joint disease. 5. Hypothyroidism. 6. History of vitamin D deficiency. 7. Goiter. 8. Knee joint arthritis. 9. History of depression. 10.Remote history of nicotine dependence. RECOMMENDATION AND DISCUSSION: In this 62-year-old woman who presented with multiple complex medical issues, will monitor the patient closely. Continue the current medications. Continue symptomatic treatment. Unstable angina protocol. Rule out myocardial infarction. Cardiology consultation. Resume the home medications. We will obtain the previous stress test also, report also. Further recommendations to follow. MMODL / IJN: [id number] /
[2018-11-30] MEDS: CYCLOBENZAPRINE 10 MG TAB PO SCH (08:38)
[2018-11-30] MEDS ORDERED: CITALOPRAM HYDROBROMIDE 10 MG TAB PO SCH (09:00)
[2018-11-30] MEDS ORDERED: ASPIRIN 325 MG TAB PO SCH (09:00)
[2018-11-30 12:17] VITALS: BP 159/81; PULSE 65; RESP 16; TEMP 97.5
--- NOTE | 2018-11-30 21:56 | DS ---
DISCHARGE SUMMARY FINAL DIAGNOSES: 1. Chest pain possibly musculoskeletal, myocardial infarction ruled out. 2. Anxiety state. 3. Hyperlipidemia. 4. Degenerative joint disease. 5. Hypothyroidism. 6. History of vitamin D deficiency. 7. History of goiter. 8. History degenerative joint disease. 9. History of depression. 10.Remote history of nicotine dependence. DISCHARGE DISPOSITION: The patient is being discharged in stable condition with guarded prognosis. HISTORY OF PRESENT ILLNESS: This 62-year-old woman with a past medical history of multiple medical problems was admitted with chest pain, myocardial infarction ruled out. Patient recently had a stress test. Cardiology saw the patient. Cleared the patient for discharge. On exam, vitals are stable. Cardiovascular: S1, S2. Abdomen soft. Nervous system: No focal deficit. Basic labs are also negative. Troponins are negative. TSH was less than 0.015, but free T4 is normal. DISCHARGE ADVICE AND MEDICATIONS: 1. Diet is cardiac diet. 2. Followup with Dr. Peterson in 1-2 days. MEDICATIONS ARE: 1. Naprosyn 220 q.4h p.r.n. 2. Celexa 10 mg q.a.m. 3. Claritin 10 mg q.h.s. 4. Drisdol 50,000 every 7 days. 5. Flexeril 10 mg p.o. b.i.d. 6. Lipitor 10 mg q.h.s. 7. Trazodone 50 mg q.h.s.. FOLLOWUP: Follow up labs free T4 and TSH and Dr. Peterson in 1-2 months. Follow up with Cardiology as recommended. MMODL / IJN: [id number] / ADEEL
[2018-12-05] MEDS ORDERED: ERGOCALCIFEROL 50,000 UNIT CAP PO SCH (09:00)
== END 2018-11-30 14:16 | disposition home or self-care (01) ==
LOC: SUPCPDRO 13:31 → EC 13:31 → 1SOBS 17:06
PROVIDERS: ADMIT Hospitalist; ATTEND Hospitalist
DX: R07.89 Other chest pain (principal); F41.1 Generalized anxiety disorder; E04.2 Nontoxic multinodular goiter; F32.9 Major depressive disorder, single episode, unspecified; E03.9 Hypothyroidism, unspecified; E78.5 Hyperlipidemia, unspecified; E55.9 Vitamin D deficiency, unspecified; M17.10 Unilateral primary osteoarthritis, unspecified knee; R01.1 Cardiac murmur, unspecified; Z79.82 Long term (current) use of aspirin; Z79.1 Long term (current) use of non-steroidal anti-inflammatories (NSAID); Z79.899 Other long term (current) drug therapy; Z91.038 Other insect allergy status; Z87.42 Personal history of other diseases of the female genital tract; Z87.891 Personal history of nicotine dependence; Z90.721 Acquired absence of ovaries, unilateral; Z90.710 Acquired absence of both cervix and uterus; Z81.8 Family history of other mental and behavioral disorders; Z80.2 Family history of malignant neoplasm of other respiratory and intrathoracic organs
CPT/HCPCS: 99285; 36415; 93005; 84439; 80061; 80053; 84443; 83735; 84484 ×2; 85025; 85610; 85730; 71046; 71260; G0378 ×2; Q9967

== ENCOUNTER → 2023-06-27 | Outpatient (CLI) | payer MEDICARE ==
--- NOTE | 2023-06-27 12:50 | US ---
EXAMINATION TYPE: US thyroid st tissue head/neck DATE OF EXAM: 06/27/2023 COMPARISON: 06/05/2017 CLINICAL INDICATION: Female, 67 years old with history of E04.9 NONTOXIC GOITER, UNSPECIFIED; GLAND SIZE: Right Lobe: 10.6 x 4.5 x 5.3 cm Overall Parenchyma: heterogenous Left Lobe: 10.1 x 5.1 x 5.7 cm Overall Parenchyma: heterogenous Isthmus Thickness: 3.1 cm NODULES RIGHT: # of nodules measured on right: 1 1. 3.4 X 1.5 x 3.1 cm, lower medial, spongiform, isoechoic nodule, which is wider than tall, with s mooth margins, with echogenic foci. TR 4 Prior size: 3.2 x 1.6 x 2.5 cm LEFT: # of nodules measured on left: 1 1. 1.7 X 1.6 x 1.0 cm, lower medial, solid or almost completely solid, hyperechoic nodule, which is wider than tall, with ill-defined margins, with echogenic foci. TR 4 Prior size: 1.1 x 0.8 x 1.0 cm ISTHMUS: # of nodules measured in the isthmus: 0 Lymph nodes noted bilaterally. Difficult exam due to pathology/gland size. IMPRESSION: Moderately suspicious nodules both left and right lobe thyroid. On the left this is enlarging. If the se have not been biopsied, biopsy would be recommended. 2017 ACR TI-RADS LEVEL: TR-RADS 4 - Moderately Suspicious: Follow if > 1 cm, FNA if > 1.5 cm *Highest TI-RADS level nodule reported
== END | disposition home or self-care (01) ==
LOC: RADUSWWP 12:10
PROVIDERS: ATTEND Family Medicine
DX: E04.9 Nontoxic goiter, unspecified (principal)
CPT/HCPCS: 76536

== ENCOUNTER 2023-08-01 12:38 | Day surgery (SDC) | payer MEDICARE ==
[2023-08-01] MEDS: ALPRAZolam 0.25 MG TAB PO STA (12:55)
[2023-08-01 13:34] VITALS: PULSE 59; RESP 18; TEMP 97.6
--- NOTE | 2023-08-01 14:43 | US ---
ULTRASOUND GUIDED FNA THYROID BIOPSY: CLINICAL HISTORY: Right thyroid nodule FINDINGS: The procedure was explained to the patient. The risks, complications, benefits and alternatives were discussed and any questions were answered. Informed consent was obtained. Patient was placed supin e on the ultrasound table and prepped and draped in the usual sterile fashion. Utilizing a 25 gauge needle, five passes were made into the requested right thyroid nodule. The left thyroid nodule noted on prior exam was not seen with certainty on today's exam. Therefore it could not be biopsied Patient was stable throughout the procedure. Pathology is pending. All elements of maximal barrier technique were utilized. IMPRESSION: 1. Successful ultrasound guided FNA right thyroid biopsy. 2. Left thyroid nodule previously described was not seen with certainty on today's exam and, therefor e, biopsy could not be performed.
[2023-08-01 15:03] VITALS: BP 175/85
== END 2023-08-01 14:35 | disposition home or self-care (01) ==
LOC: RADPROMAIN 12:38
PROVIDERS: ATTEND Family Medicine
DX: E04.1 Nontoxic single thyroid nodule (principal)
CPT/HCPCS: 10005

== ENCOUNTER → 2024-08-23 | Outpatient (CLI) | payer MEDICARE, OTHER ==
--- NOTE | 2024-08-23 17:35 | CA ---
Transthoracic Echo Report Name: Patrica Emmanuel Age: 68 Gender: F : 1955 Exam Date: 08/23/2024 14:56 Exam Location: [place] Ht (in): 61 Wt (lb): 157 Ordering Physician: Kg Peterson DO Attending/Referring Phys: Coleen Lopez PAC Peanut Farmer Alissa Muñoz RDCS Procedure CPT: Indications: R01.1 CARDIAC MURMUR, UNSPECIFIED Cardiac Hx: Technical Quality: Good Contrast 1: Total Dose (mL): Contrast 2: Total Dose (mL): MEASUREMENTS (Male / Female) Normal Values 2D ECHO LV Diastolic Diameter PLAX 3.4 cm 4.2 - 5.9 / 3.9 - 5.3 cm LV Systolic Diameter PLAX 2.5 cm IVS Diastolic Thickness 1.0 cm 0.6 - 1.0 / 0.6 - 0.9 cm LVPW Diastolic Thickness 1.0 cm 0.6 - 1.0 / 0.6 - 0.9 cm LV Relative Wall Thickness 0.6 RV Internal Dim ED PLAX 3.1 cm LA Systolic Diameter LX 3.1 cm 3.0 - 4.0 / 2.7 - 3.8 cm LV Diastolic Volume MOD 4C 66.4 cm??? LV Systolic Volume MOD 4C 27.4 cm??? LV Ejection Fraction MOD 4C 58.8 % LV Cardiac Index MOD 4C 1649.0 cm???/min???m??? LV Diastolic Length 4C 7.8 cm LV Systolic Length 4C 6.0 cm LV Diastolic Volume MOD 2C 89.8 cm??? LV Systolic Volume MOD 2C 22.6 cm??? LV Ejection Fraction MOD 2C 74.8 % LV Cardiac Index MOD 2C 2835.3 cm???/min???m??? LV Diastolic Length 2C 7.8 cm LV Systolic Length 2C 5.6 cm LA Volume 42.0 cm??? 18 - 58 / 22 - 52 cm??? LA Volume Index 23.6 cm???/m??? 16 - 28 cm???/m??? M-MODE Aortic Root Diameter MM 2.5 cm DOPPLER AV Peak Velocity 229.9 cm/s AV Peak Gradient 21.1 mmHg AV Mean Velocity 146.4 cm/s AV Mean Gradient 9.9 mmHg AV Velocity Time Integral 49.2 cm AI Peak Velocity 266.0 cm/s AI Peak Gradient 28.3 mmHg AI Pressure Half Time 1489.4 ms LVOT Peak Velocity 195.8 cm/s LVOT Peak Gradient 15.3 mmHg LVOT Velocity Time Integral 38.3 cm TR Peak Velocity 311.4 cm/s TR Peak Gradient 38.8 mmHg Right Ventricular Systolic Press 43.0 mmHg FINDINGS Left Ventricle Left ventricular ejection fraction is estimated at 55-60 %. Small left ventricular cavity. Normal left ventricular wall motion. Perimembranus VSD Right Ventricle Normal right ventricular size and function. Mild pulmonary hypertension. Right Atrium Normal right atrial size. No right atrial thrombus or mass seen. Left Atrium Normal left atrial size. No left atrial thrombus or mass present. Mitral Valve Structurally normal mitral valve. No evidence for mitral valve prolapse. No mitral stenosis. Mild mitral regurgitation. Aortic Valve Trileaflet aortic valve. Mild aortic regurgitation. Gradient accross AOV max 21 mean 10. Tricuspid Valve Structurally normal tricuspid valve. Mild tricuspid regurgitation. Pulmonic Valve Structurally normal pulmonic valve. Trace pulmonic regurgitation. Pericardium No pericardial effusion. Aorta Normal size aortic root and proximal ascending aorta. CONCLUSIONS LVEF 55% No obvious regional wall motion abnormality Small Perimembranous VSD Calcific aortic valve with mild aortic regurgitation with mild aortic regurgitration Mild tricuspid regurgitation. Previewed by: Dr Ken Mclaughlin (Electronically Signed) Final Date: 23 August 2024 17:34
== END | disposition home or self-care (01) ==
LOC: RADECHMAIN 14:46
PROVIDERS: ATTEND Family Medicine
DX: Q21.0 Ventricular septal defect (principal); I08.2 Rheumatic disorders of both aortic and tricuspid valves; R01.1 Cardiac murmur, unspecified; I37.1 Nonrheumatic pulmonary valve insufficiency
CPT/HCPCS: 93306

== ENCOUNTER → 2024-09-20 | Outpatient (CLI) | payer MEDICARE, OTHER ==
--- NOTE | 2024-09-20 15:25 | BD ---
EXAMINATION TYPE: Axial Bone Density DATE OF EXAM: 09/20/2024 CLINICAL HISTORY: 68 years old Female. ICD-10 CODE: M81.0 AGE-RELATED OSTEOPOROSES , Additional Hist ory: Height: 59 Weight: 149 FRAX RISK QUESTIONS: Family History (Parent hip fracture): no History of Fracture in Adulthood: no Secondary Osteoporosis: no Rheumatoid Arthritis: no RISK FACTORS HISTORY OF: History of Wrist Fracture: yes When: 18yrs old Surgery to Spine/Hip(right/left)/Wrist (right/left): no MEDICATIONS: Thyroid Medications: no Osteoporosis Medications: no EXAM MEASUREMENTS: Bone mineral densitometry was performed using the [employer]. Bone mineral density as measured about the Lumbar spine is: ----- L1-L4(G/cm2): 1.079 T Score Values are as follows: ----- L1: -0.7 ----- L2: -2.2 ----- L3: -0.9 ----- L4: 0.0 ----- L1-L4: -0.8 Z Score Values are as follows: ----- L1: 0.9 ----- L2: -0.6 ----- L3: 0.7 ----- L4: 1.6 ----- L1-L4: 0.8 Bone mineral density has: Increased 29.4% since study of: 07/17/2017 Bone mineral density about the R hip (g/cm2): 0.748 Bone mineral density about the L hip (g/cm2): 0.717 T Score values are as follows: -----R Neck: -2.9 -----L Neck: -3.2 -----R Total: -2.1 -----L Total: -2.3 Z Score values are as follows: -----R Neck: -1.2 -----L Neck: -1.6 -----R Total: -0.6 -----L Total: -0.9 Bone mineral density has: Decreased -2.7% since study of: 07/17/2017 FRAX%s: The graph provided illustrates a 20.6% chance for a major osteoporotic fx and a 7.6% chance f or the hips probability for fx in 10 years time. IMPRESSION: Osteoporosis (T Score less than -2.5). There is increased fracture risk and therapy is usually indicated based on age. Re-Screen 1-2 years. NOTE: T-SCORE=SD OF THE YOUNG ADULT MEAN. [facility], , 09/20/2024 3:23 PM
--- NOTE | 2024-09-20 15:36 | US ---
EXAMINATION TYPE: US thyroid st tissue head/neck DATE OF EXAM: 09/20/2024 COMPARISON: Ultrasound FNA thyroid to 12/14/2023, 07/12/2017, thyroid ultrasound 06/27/2023, 06/05/2017 CLINICAL INDICATION: Female, 68 years old with history of E04.9 GOITER; Goiter TECHNIQUE: Grayscale and color Doppler imaging of the thyroid gland. FINDINGS: GLAND SIZE: Right Lobe: 9.5x5.1x4.6 cm Overall Parenchyma: heterogeneous Left Lobe: 9.3x4.5x6.0 cm Overall Parenchyma: heterogeneous Isthmus Thickness: 4.6 cm NODULES RIGHT: # of nodules measured on right: 1 1. 2.6 X 4.0 x 1.6 cm, upper mid, mixed cystic and solid, hypoechoic nodule, which is wider than ta ll, with smooth margins, without echogenic foci. TR 3. Prior size: 3.2 x 1.6 x 2.5 cm LEFT: # of nodules measured on left: 1 1. 0.9 X 1.2 x 1.5 cm, lower mid, solid or almost completely solid, very hypoechoic nodule, which i s wider than tall, with ill-defined margins, with echogenic foci. TR 5. Prior size: 1.7 x 1.6 x 1.0 cm ISTHMUS: # of nodules measured in the isthmus: 0 Bilateral neck scanned, no evidence of lymphadenopathy. IMPRESSION: Markedly enlarged heterogenous thyroid gland redemonstrated with mildly decreased size of thyroid nod ules from prior examination. These include a TR 5 1.5 cm left thyroid lobe nodule and a TR 3 right th yroid lobe nodule measuring 4.0 cm. These have been previously biopsied. The need for repeat biopsy s hould be determined clinically. Consider follow-up ultrasound in one year. [facility], , 09/20/2024 3:34 PM
--- NOTE | 2024-09-26 13:46 | MM ---
Reason for Exam: Screening (asymptomatic). Patient History: Menarche at age 10. Patient has no children. Left ovary removed at age 58. Right ovary removed at age 58. Hysterectomy at age 58. Postmenopausal. Risk Values: Brooklyn 5 year model risk: 1.9%. NCI Lifetime model risk: 5.6%. Tissue Density: The breasts are heterogeneously dense, which may obscure small masses. Findings: Analyzed By CAD. There is no suspicious group of microcalcifications or new suspicious mass in either breast. Benign lymph node left axilla. Overall Assessment: Benign, BI-RAD 2 Management: Screening Mammogram of both breasts in 1 year. . Patient should continue monthly self-breast exams. A clinical breast exam by your physician is recommended on an annual basis. This exam should not preclude additional follow-up of suspicious palpable abnormalities. Note on Brooklyn scores and lifetime risk: 1. A Brooklyn score greater than 3% is considered moderate risk. If this is the case, consider specialist referral to assess eligibility for a risk reducing agent. 2. If overall lifetime risk for the development of breast cancer is 20% or higher, the patient may qualify for future screening with alternating mammogram and breast MRI. [facility], , 09/20/2024 3:26 PM. Electronically signed and approved by: Rafal Peraza M.D. Radiolog[facility]
== END | disposition home or self-care (01) ==
LOC: RADBDWWP 13:32
PROVIDERS: ATTEND Family Medicine
DX: Z12.31 Encounter for screening mammogram for malignant neoplasm of breast (principal); M81.0 Age-related osteoporosis without current pathological fracture; R92.333 Mammographic heterogeneous density, bilateral breasts; E04.2 Nontoxic multinodular goiter; Z78.0 Asymptomatic menopausal state
CPT/HCPCS: 76536; 77063; 77067; 77080